=== PATIENT | female | born 1985 | race Two or more races ===

== ENCOUNTER 2017-06-09 08:45 | Emergency (ER) | payer SELFPAY ==
[2017-06-09] VITALS (12 sets, daily range): BP systolic 97–130; BP diastolic 18–90
[~2017-06-09] VITALS: Ht 167.6 cm; Wt 81.6 kg
[2017-06-09] MEDS ORDERED: Haloperidol 5mg/ml Inj IM ONE (09:00)
[2017-06-09] MEDS ORDERED: LORazepam Inj 2mg/ml 1ml IM ONE (09:00)
[2017-06-09 09:17] LABS: BASOPHILS % (AUTO) 1.5 % (0.0-2.0); EOSINOPHILS % (AUTO) 1.1 % (0.0-3.0); LYMPHOCYTES % (AUTO) 44.1 % (20.0-45.0); MEAN CORPUSCULAR HEMOGLOBIN 28.2 PG (27.0-31.0); MEAN CORPUSCULAR HGB CONC 31.9 G/DL (32.0-36.0); MEAN CORPUSCULAR VOLUME 88 FL (80-99); MEAN PLATELET VOLUME 7.5 FL (6.5-10.1); MONOCYTES % (AUTO) 7.9 % (1.0-10.0); NEUTROPHILS % (AUTO) 45.4 % (45.0-75.0); PLATELET COUNT 283 K/UL (150-450); RED BLOOD COUNT 4.41 M/UL (4.20-5.40); RED CELL DISTRIBUTION WIDTH 14.2 % (11.6-14.8); WHITE BLOOD COUNT 8.4 K/UL (4.8-10.8)
[2017-06-09 09:20] LABS: APPEARANCE,URINE CLOUDY; KETONES,URINE 1+ (NEGATIVE); LEUKOCYTE ESTERASE ,URINE 3+ (NEGATIVE); NITRITE,URINE NEGATIVE (NEGATIVE); PH,URINE 5 (4.5-8.0); PROTEIN,URINE 2+ (NEGATIVE); UROBILINOGEN,URINE 1 MG/DL (0.0-1.0)
--- NOTE | 2017-06-09 09:22 | Emergency Room Report ---
History of Present Illness General Chief Complaint: Behavioral Complaint Source: Patient, EMS Present Illness HPI EMS was called [employer]. His patient was out of control screaming. She has a history of bipolar disorder and apparently has not been taking her medication. She denies being suicidal or homicidal. She also denies any drugs. She states that she needs to get Depakote and also Ativan. She also complains about dysuria and states she has an UTI. Denies fever or back pain. She is refusing to answer many questions but she denies having pain in her body at this time. She also denies being . Allergies: Coded Allergies: DIPHENHYDRAMINE (Verified Allergy, Unknown, 06/09/17) Patient History Limited by: medical condition Past Medical History: see triage record Social History: Denies: drug use Social History Narrative born [place] Reviewed Nursing Documentation: PMH: Agreed, PSxH: Agreed Nursing Documentation-PM Past Medical History: No History, Except For History Of Psychiatric Problem: Yes Review of Systems All Other Systems: negative except mentioned in HPI Physical Exam Vital Signs Date Time Temp Pulse Resp B/P Pulse Ox O2 Delivery O2 Flow Rate FiO2 06/09/17 08:40 98.2 89 16 124/83 100 Room Air Sp02 EP Interpretation: reviewed, normal General Appearance: well appearing, GCS 15, mild distress Head: normocephalic, atraumatic Eyes: bilateral eye PERRL, bilateral eye Scleral Injection ENT: moist mucus membranes Neck: supple Respiratory: lungs clear, normal breath sounds Cardiovascular #1: regular rate, rhythm Cardiovascular #2: 2+ radial (R) Gastrointestinal: normal inspection, normal bowel sounds, non tender, non- distended Musculoskeletal: back normal, gait/station normal, normal range of motion Neurologic: alert, motor strength/tone normal, DTRs symmetric, sensory intact, speech normal - pressured and labile, oriented - knows 2017 Psychiatric: no suicidal/homicidal ideation, other - delusional and pressured Skin: normal inspection, warm/dry Medical Decision Making Diagnostic Impression: Primary Impression: Stimulant abuse Additional Impressions: Bipolar disorder Qualified Codes: F31.64 - Bipolar disorder, current episode mixed, severe, with psychotic features Non compliance with medical treatment UTI (urinary tract infection) Qualified Codes: N30.00 - Acute cystitis without hematuria ER Course Patient presents with psychosis. Differential includes exacerbation of bipolar disorder, drug ingestion, electrolyte imbalance amongst others. Evaluation will be undertaken with EKG and labs for the patient will receive IV hydration. At this point she is threatening staff and will not calm down. Initially hard restraints were ordered and also the patient was given medication for sedation. We will be checking a Depakote level. We'll replace this is it's needed. Psychiatric consultation may be needed. The patient had good results with sedation. [employer] insisted of placing the patient on a 5150. Labs are significant for positive amphetamines and cocaine. In addition she has pyuria. Antibiotics are started. Patient valproic acid level low. IV valproic acid ordered. Discussed with Dr. Vega. Patient too sedated at this time for psychiatric evaluation. Patient signed out to Dr. Alberto. Patient will need re-evaluation when awake. In AM, patient alert, ambulatory. Denies HI/SI. Plan to have Dr. Vega to evaluate. Will give AM meds - Risperdal 2 mg, Vistaril and Depakote. Macrobid also given for UTI Ativan also given. Dr. Vega removing hold and recommends Haldol decanoate. Ordered. Patient stable for outpatient observation and treatment. Laboratory Tests Test 06/09/17 08:57 06/09/17 09:00 Urine Color Yellow Urine Appearance Cloudy Urine pH 5 (4.5-8.0) Urine Specific [place] 1.025 (1.005-1.035) Urine Protein 2+ (NEGATIVE) H Urine Glucose (UA) Negative (NEGATIVE) Urine Ketones 1+ (NEGATIVE) H Urine Occult Blood 2+ (NEGATIVE) H Urine Nitrite Negative (NEGATIVE) Urine Bilirubin Negative (NEGATIVE) Urine Urobilinogen 1 MG/DL (0.0-1.0) H Urine Leukocyte Esterase 3+ (NEGATIVE) H Urine RBC 5-10 /HPF (0 - 2) H Urine WBC 10-15 /HPF (0 - 2) H Urine Squamous Epithelial Cells Occasional /LPF Urine Bacteria Occasional /HPF (NONE) Urine HCG, Qualitative Negative Urine Opiates Screen Negative (NEGATIVE) Urine Barbiturates Screen Negative (NEGATIVE) Phencyclidine (PCP) Screen Negative (NEGATIVE) Urine Amphetamines Screen Positive (NEGATIVE) H Urine Benzodiazepines Screen Negative (NEGATIVE) Urine Cocaine Screen Positive (NEGATIVE) H Urine Marijuana (THC) Screen Negative (NEGATIVE) White Blood Count 8.4 K/UL (4.8-10.8) Red Blood Count 4.41 M/UL (4.20-5.40) Hemoglobin 12.4 G/DL (12.0-16.0) Hematocrit 38.9 % (37.0-47.0) Mean Corpuscular Volume 88 FL (80-99) Mean Corpuscular Hemoglobin 28.2 PG (27.0-31.0) Mean Corpuscular Hemoglobin Concent 31.9 G/DL (32.0-36.0) L Red Cell Distribution Width 14.2 % (11.6-14.8) Platelet Count 283 K/UL (150-450) Mean Platelet Volume 7.5 FL (6.5-10.1) Neutrophils (%) (Auto) 45.4 % (45.0-75.0) Lymphocytes (%) (Auto) 44.1 % (20.0-45.0) Monocytes (%) (Auto) 7.9 % (1.0-10.0) Eosinophils (%) (Auto) 1.1 % (0.0-3.0) Basophils (%) (Auto) 1.5 % (0.0-2.0) Sodium Level 139 mEQ/L (135-145) Potassium Level 3.6 mEQ/L (3.4-4.9) Chloride Level 102 mEQ/L (98-107) Carbon Dioxide Level 26 mEQ/L (20-30) Anion Gap 11 (5-15) Blood Urea Nitrogen 12 mg/dL (7-23) Creatinine 0.9 mg/dL (0.5-0.9) Estimate Glomerular Filtration Rate > 60 mL/min (>60) Glucose Level 130 mg/dL (74-106) H Calcium Level 9.2 mg/dL (8.6-10.2) Total Bilirubin 0.2 mg/dL (0.0-1.2) Aspartate Amino Transferase (AST) 22 U/L (5-40) Alanine Aminotransferase (ALT) 11 U/L (3-33) Alkaline Phosphatase 53 U/L (35-104) Total Creatine Kinase 362 U/L (26-140) H Total Protein 7.3 g/dL (6.6-8.7) Albumin 4.4 g/dL (3.5-5.2) Globulin 2.9 g/dL Albumin/Globulin Ratio 1.5 (1.0-2.7) Salicylates Level < 1 mg/dL (10-30) L Acetaminophen Level < 10 ug/mL (10-30) L Valproic Acid Level 8 ug/mL (50-100) L Serum Alcohol < 10 mg/dL EKG Diagnostic Results Rate: normal Rhythm: NSR ST Segments: no acute changes Rhythm Strip Diag. Results EP Interpretation: yes Rhythm: NSR, no PVC's, no ectopy Last Vital Signs Date Time Temp Pulse Resp B/P Pulse Ox O2 Delivery O2 Flow Rate FiO2 06/10/17 11:45 97.7 64 20 118/80 96 Room Air Status: improved Disposition: HOME, SELF-CARE Condition: Improved Scripts Nitrofurantoin Monohyd/M-Cryst* (MACROBID 100 MG*) 100 Mg Capsule 100 MG ORAL EVERY 12 HOURS, #14 CAP Prov: Bob Malhotra M.D. 06/10/17 Hydroxyzine Pamoate (VISTARIL) 25 Mg Capsule 25 MG PO BID, #30 CAP 1 Refill Prov: Bob Malhotra M.D. 06/10/17 Divalproex Sodium* (DEPAKOTE ER*) 500 Mg Tab.er.24h 1000 MG ORAL QHS, #30 TAB Prov: Bob Malhotra M.D. 06/10/17 Bob Malhotra M.D. Jun 09, 2017 09:22
[2017-06-09 09:23] LABS: ACETAMINOPHEN < 10 ug/mL (10-30); ALANINE AMINOTRANSFERASE 11 U/L (3-33); ALBUMIN/GLOBULIN RATIO 1.5 (1.0-2.7); ALCOHOL < 10 mg/dL; ANION GAP 11 (5-15); ASPARTATE AMINO TRANSFERASE 22 U/L (5-40); CALCIUM 9.2 mg/dL (8.6-10.2); CARBON DIOXIDE 26 mEQ/L (20-30); CHLORIDE 102 mEQ/L (98-107); CREATININE 0.9 mg/dL (0.5-0.9); GLOMERULAR FILTRATION RATE > 60 mL/min (>60); HEMOLYSIS 10; POTASSIUM 3.6 mEQ/L (3.4-4.9); SODIUM 139 mEQ/L (135-145); TOTAL PROTEIN 7.3 g/dL (6.6-8.7); VALPROIC ACID 8 ug/mL (50-100)
[2017-06-09] MEDS ORDERED: LORazepam Inj 2mg/ml 1ml IV ONE (09:30)
[2017-06-09 09:35] LABS: BACTERIA,URINE OCCASIONAL /HPF; SQUAMOUS EPITHELIAL CELL,UR OCCASIONAL /LPF (NONE/OCC)
[2017-06-09] MEDS ORDERED: cefTRIAXone 1 GM in NS 55 ML IVPB ONE (10:15)
[2017-06-10 01:02] VITALS: BP 114/63
[2017-06-10 03:30] VITALS: BP 110/65
[2017-06-10 05:00] VITALS: BP 107/68
[2017-06-10 06:10] VITALS: BP 115/70
[2017-06-10] MEDS ORDERED: Depakote 500mg tab ORAL ONE (07:30)
[2017-06-10 08:12] VITALS: BP 121/82
[2017-06-10] MEDS ORDERED: LORazepam 1mg tab ORAL ONE (08:15)
[2017-06-10] MEDS ORDERED: Haloperidol Decanoate 50mg Inj IM ONE (09:15)
--- NOTE | 2017-06-10 09:15 | Consultation ---
History of Present Illness General Chief Complaint: Behavioral Complaint Present Illness HPI 32 yo female with hx of substance use disorder, and bipolar d/o with psychotic fx. the pt was [facility]. the pt is placed on 5150 hold. during the eval today the pt pw pressured speech, grandiose delusional, somewhat disorganized. the pt stated that she is from [place]. the pt stated that she would take her meds and is asking to get a long acting antipsychotic. the pt agreed to haldol dec if we could not get her risperdal consta. Allergies: Coded Allergies: DIPHENHYDRAMINE (Verified Allergy, Unknown, 06/09/17) Patient History History Provided By: Patient, Medical Record, PMD Healthcare decision maker Resuscitation status Advanced Directive on File Past Medical/Surgical History Past Medical/Surgical History: (1) Bipolar disorder (2) UTI (urinary tract infection) (3) Non compliance with medical treatment (4) Stimulant abuse Review of Systems Psychiatric: Reports: anxiety, emotional problems, hallucinations Physical Exam General Appearance: no apparent distress, alert, overweight Neurologic: alert, oriented x 3, responsive Last 24 Hour Vital Signs Date Time Temp Pulse Resp B/P Pulse Ox O2 Delivery O2 Flow Rate FiO2 06/10/17 08:12 97.7 67 21 121/82 94 Room Air 06/10/17 06:10 69 15 115/70 99 Room Air 06/10/17 05:00 98.2 70 16 107/68 100 Room Air 06/10/17 03:30 98.0 74 17 110/65 99 Room Air 06/10/17 01:02 97.6 76 20 114/63 06/09/17 17:31 78 16 97/90 98 Room Air 06/09/17 12:24 97.8 76 17 122/75 99 Room Air 06/09/17 11:10 76 18 99 Room Air 06/09/17 11:10 82 18 100 Room Air 06/09/17 11:00 70 18 99 Room Air 06/09/17 10:45 76 16 99 Room Air 06/09/17 10:30 76 18 98 Room Air 06/09/17 10:15 99 06/09/17 10:00 72 18 100 06/09/17 09:47 66 18 100 Room Air 06/09/17 09:36 68 18 100 Room Air 06/09/17 09:22 97.8 72 20 120/18 98 Room Air 06/09/17 09:21 76 18 100 Room Air 06/09/17 09:16 80 20 99 Room Air Intake and Output 06/09/17 06/10/17 19:00 07:00 Intake Total 1240 ml Balance 1240 ml Intake Oral 240 ml IV Total 1000 ml Laboratory Tests Test 06/09/17 09:00 White Blood Count 8.4 K/UL (4.8-10.8) Red Blood Count 4.41 M/UL (4.20-5.40) Hemoglobin 12.4 G/DL (12.0-16.0) Hematocrit 38.9 % (37.0-47.0) Mean Corpuscular Volume 88 FL (80-99) Mean Corpuscular Hemoglobin 28.2 PG (27.0-31.0) Mean Corpuscular Hemoglobin Concent 31.9 G/DL (32.0-36.0) L Red Cell Distribution Width 14.2 % (11.6-14.8) Platelet Count 283 K/UL (150-450) Mean Platelet Volume 7.5 FL (6.5-10.1) Neutrophils (%) (Auto) 45.4 % (45.0-75.0) Lymphocytes (%) (Auto) 44.1 % (20.0-45.0) Monocytes (%) (Auto) 7.9 % (1.0-10.0) Eosinophils (%) (Auto) 1.1 % (0.0-3.0) Basophils (%) (Auto) 1.5 % (0.0-2.0) Sodium Level 139 mEQ/L (135-145) Potassium Level 3.6 mEQ/L (3.4-4.9) Chloride Level 102 mEQ/L (98-107) Carbon Dioxide Level 26 mEQ/L (20-30) Anion Gap 11 (5-15) Blood Urea Nitrogen 12 mg/dL (7-23) Creatinine 0.9 mg/dL (0.5-0.9) Estimat Glomerular Filtration Rate > 60 mL/min (>60) Glucose Level 130 mg/dL (74-106) H Calcium Level 9.2 mg/dL (8.6-10.2) Total Bilirubin 0.2 mg/dL (0.0-1.2) Aspartate Amino Transf (AST/SGOT) 22 U/L (5-40) Alanine Aminotransferase (ALT/SGPT) 11 U/L (3-33) Alkaline Phosphatase 53 U/L (35-104) Total Creatine Kinase 362 U/L (26-140) H Total Protein 7.3 g/dL (6.6-8.7) Albumin 4.4 g/dL (3.5-5.2) Globulin 2.9 g/dL Albumin/Globulin Ratio 1.5 (1.0-2.7) Salicylates Level < 1 mg/dL (10-30) L Acetaminophen Level < 10 ug/mL (10-30) L Valproic Acid (Depakene) Level 8 ug/mL (50-100) L Serum Alcohol < 10 mg/dL Height (Feet): 5 Height (Inches): 6.00 Weight (Pounds): 180 Medications Current Medications Medications (Trade) Dose Ordered Sig/Kevin Route PRN Reason Start Time Stop Time Status Last Admin Dose Admin Sodium Chloride (Sodium Chloride 1000ml bag) 1,000 ml @ 300 mls/hr Q3H20M IV 06/09/17 09:00 07/09/17 08:59 06/09/17 15:40 Assessment/Plan Status: stable Assessment/Plan bipolar d/o with psychotic fx, crystal and cocaine abuse -haldol dec 75mg im x 1time -risperdal 3mg qhs -Depakote er 1000mg -dc 5150 Juan Ramon Vega M.D. Jun 10, 2017 09:15
[2017-06-10] MEDS ORDERED: VISTARIL25 M1 PO (09:16)
[2017-06-10] MEDS ORDERED: NITROFURANTOIN100 M2 ORAL (09:16)
[2017-06-10] MEDS ORDERED: DEPAKOTE ER500 MG ORAL (09:16)
[2017-06-10 11:45] VITALS: BP 118/80
== END 2017-06-10 11:45 | disposition home or self-care (01) ==
LOC: EDBD 08:45 → EMR 09:30
DX: F15.10 Other stimulant abuse, uncomplicated (principal); F31.9 Bipolar disorder, unspecified; N39.0 Urinary tract infection, site not specified
CPT/HCPCS: 36415; 80053; 80164; 80300; 81003; 81025; 82550; 85025; 87086; 93005; 96361; 96372; 96374; 96375; 99284; G0480; J0515; J0696; J1630; J1631; 80329

== ENCOUNTER 2018-02-01 22:11 | Emergency (ER) | payer MEDICARE, MEDICAID ==
[~2018-02-01] VITALS: Ht 172.7 cm; Wt 104.3 kg
[~2018-02-01 22:11] MED LIST: DEPAKOTE ER500 MG ORAL; NITROFURANTOIN100 M2 ORAL; VISTARIL25 M1 PO
[2018-02-01] MEDS ORDERED: NKM (22:31)
[2018-02-01 23:00] VITALS: BP 130/83
[2018-02-02] MEDS ORDERED: Acetaminophen 500mg (ES) tab ORAL ONE (00:30)
[2018-02-02 03:00] VITALS: BP 124/77
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
[2018-02-02 06:45] VITALS: BP 132/81
--- NOTE | 2018-02-02 09:03 | Diagnostic Imaging Report ---
Indication: Abdominal pain Technique: Spiral acquisitions obtained through the abdomen and pelvis. No oral contrast utilized, per emergency room physician request No IV contrast utilized, per referring physician request.. Multiplanar reconstructions were generated. Total dose length product 912.46 mGycm. CTDIvol(s) 17.25 mGy. Dose reduction achieved using automated exposure control Comparison: None Findings: There is trace free pelvic fluid. What is probably a normal appendix is visualized. No evidence of diverticulosis or diverticulitis. No small bowel distention. No free intraperitoneal air. Distal esophagus, stomach, duodenum are unremarkable. Lack of IV contrast limits assessment of the solid organs. The liver, gallbladder, bile ducts, pancreas, spleen, adrenals, kidneys are all unremarkable. No retroperitoneal or mesenteric mass or adenopathy. No pelvic mass or adenopathy. The included lung bases are clear. The bones are unremarkable. Impression: Trace free pelvic fluid, most likely physiologic Essentially unremarkable exam This agrees with the preliminary interpretation provided overnight by [facility]. The CT scanner at [facility] is accredited by the [employer] and the scans are performed using protocols designed to limit radiation exposure to as low as reasonably achievable to attain images of sufficient resolution adequate for diagnostic evaluation.
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
[2018-02-02 09:30] VITALS: BP 128/80
[2018-02-02 09:45] VITALS: BP 132/81
== END 2018-02-02 09:50 | disposition home or self-care (01) ==
LOC: EDBD 22:11 → EMR 23:06
DX: S00.83XA Contusion of other part of head, initial encounter (principal); S20.219A Contusion of unspecified front wall of thorax, initial encounter; F15.10 Other stimulant abuse, uncomplicated; F14.10 Cocaine abuse, uncomplicated; F43.10 Post-traumatic stress disorder, unspecified; Z88.8 Allergy status to other drugs, medicaments and biological substances; Y09 Assault by unspecified means
CPT/HCPCS: 70486; 74176; 80307; 81025; 99283